=== PATIENT | male | born 1940 | race Caucasian/White ===

== ENCOUNTER 2021-01-25 05:55 | Inpatient (IN) | payer MEDICARE ==
[~2021-01-25] VITALS: Ht 170.2 cm; Wt 67.0 kg
[~2021-01-25 05:55] MED LIST: AMLO5 PO; ASPI325 PO; ASPI81CH PO; AZIT250 PO; CENTRUM SILVER1 EAC4 PO; CHOL10002 PO; FAMO20 PO; FERR325 PO; GABA300 PO; GAVILAX17 GM PO; HYDCHL25 PO; LORA10 PO; LOSA50 PO; LOVA40 PO; METO25ER PO; MIRT15 PO; Oxycodone HCl20 M1 PO; PREG50 PO; SERT100 PO; Stool Softener100 MG PO
[2021-01-25 06:17] LABS: BASOPHILS ABSOLUTE AUTO 0.04 K/mm3 (0.00-0.23); BASOPHILS PERCENT AUTO 0 % (0-2); EOSINOPHILS ABSOLUTE AUTO 0.11 K/mm3 (0.00-0.68); EOSINOPHILS PERCENT AUTO 1 % (0-6); Hemoglobin 8.5 g/dL (13.5-17.5); IMMATURE GRAN ABSOLUTE AUTO 0.03 K/mm3 (0.00-0.10); IMMATURE GRAN PERCENT AUTO 0 % (0-1); LYMPHOCYTES ABSOLUTE AUTO 1.52 K/mm3 (0.84-5.20); LYMPHOCYTES PERCENT AUTO 15 % (21-46); MONOCYTES ABSOLUTE AUTO 1.16 K/mm3 (0.16-1.47); MONOCYTES PERCENT AUTO 11 % (4-13); Mean Corpuscular HGB 25.6 pg (26.0-34.0); Mean Corpuscular HGB Conc 29.3 g/dL (31.5-36.5); Mean Corpuscular Volume 87 fL (80-100); Mean Platelet Volume 10.2 fL (9.1-12.4); NEUTROPHILS PERCENT AUTO 72 % (41-73); Platelet Count 240 K/mm3 (150-400); RDW Coefficient Variation 16.6 % (11.7-14.2); RDW Standard Deviation 52.9 fL (35.1-46.3); Red Blood Cell Count 3.32 M/mm3 (4.30-5.90); White Blood Cell Count 10.16 K/mm3 (4.00-11.30)
[2021-01-25 06:47] LABS: Albumin, Blood 2.8 g/dL (3.4-5.0); Albumin/Globulin Ratio 0.8 (0.8-1.8); Bilirubin, Total 0.4 mg/dL (0.1-1.0); Bun/Creatinine Ratio 31.7 (12.0-20.0); Creatinine, Blood 1.8 mg/dL (0.60-1.20); Globulin, Blood 3.7 g/dL (2.2-4.0); Potassium, Blood 3.8 mmol/L (3.5-5.5); Total Protein, Blood 6.5 g/dL (6.4-8.2)
[2021-01-25 06:51] LABS: Troponin I 0.577 ng/mL (0.000-0.040)
[2021-01-25 07:30] LABS: Source, Urine Catheter
[2021-01-25 07:34] LABS: Appearance, Urine Clear (Clear); Bilirubin, Urine Neg (Neg); Blood, Urine Neg (Neg); Color, Urine Yellow (P-Yellow); Glucose Qualitative, Urine Neg (Neg); Ketones, Urine Neg (Neg); Leukocyte Esterase, Urine Neg (Neg); Nitrite, Urine Neg (Neg); Protein, Urine 2+ (Neg); Urobilinogen, Urine NORM (Normal)
[2021-01-25 07:35] LABS: SARS-Cov-2 (COVID-19) PCR, MMC NEGATIVE (NEGATIVE)
[2021-01-25 07:42] LABS: Red Blood Cells, Urine 0-2 /hpf (0-2); Squamous Epithelial Cells Few /hpf (Few)
[2021-01-25 07:43] LABS: Bacteria Rare /hpf
[2021-01-25 08:43] LABS: Base Excess Venous 8.7 mmol/L; Bicarbonate Venous 30.8 mmol/L (24.0-30.0); PO2 Venous 46.8 mmHg (38-42); pH Blood Venous 7.35 (7.34-7.37)
[2021-01-25 08:59] LABS: Percent Saturation 2.9 % (20.0-50.0)
[2021-01-25] MEDS ORDERED: CLOP75 PO (09:26)
[2021-01-25] MEDS ORDERED: FURO40 PO (09:26)
[2021-01-25] MEDS ORDERED: XARELTO20 MG PO (09:27)
[2021-01-25] MEDS ORDERED: LOVASTATIN20 MG PO (11:46)
[2021-01-25] MEDS ORDERED: GABAPENTIN600 MG PO (11:47)
[2021-01-25] MEDS ORDERED: METOPROLOL SUCC25 MG PO (11:47)
[2021-01-25] MEDS ORDERED: FUROSEMIDE20 MG PO (11:47)
[2021-01-25] MEDS ORDERED: FAMO20 PO (11:48)
[2021-01-25] MEDS ORDERED: REMERON PO (11:48)
--- NOTE | 2021-01-25 14:10 | NUR ---
PT ARRIVED TO UNIT FROM ER PT TRANSFERED FROM [facility] TO BED WITH SLIDE SHEET. TOLERATED WELL. PT REPORTS LOWER BACK PAIN THAT IS CHRONIC FOR HIM. DENIES CHEST PAIN OR SOB. HE IS ORIENTED BUT INT CONFUSION, REDIRECTS WELL. STATES HE "DOES NOT FEEL WELL" CURRENTLY ON 2L NASAL CANULA. CALL LIGHT IS IN REACH, EDUCATED ON USE. BED ALARM ON FOR SAFETY. PT CONFIRMED DNR STATUS AND BAND PLACED ON R WRIST. MEPILEX APPLIED TO BELOW GLUTEAL FOLD ON LEFT SIDE FOR REDDENED AREA WITH SMALL SKIN SLOUGH. END OF STUMP ON LEFT LEG BRIGHT RED BUT BLANCHABLE. MEPILEX APPLED AND PILLOW PLACED UNDERNEATH.
--- NOTE | 2021-01-25 17:32 | NUR ---
TELE CALLED TO REPORT A 7 SECOND, 16 BEAT RUN OF VTACH. PT CONTINUES TO SLEEP AND WILL AWAKEN WHEN TALKED TO HE STATES "GOOD MORNING" EACH TIME HE IS AWOKEN AND TAKES TIME TO REORIENT. FALLS ASLEEP QUICKLY AFTER. BLOOD PRESSURES IN THE 70'S SYSTOLIC. HARNESSMAKER APPRENTICE AWARE. NOTIFIED PROVIDER DYLAN. CONTINUING TO MONITOR VITALS. PT CONTINUES TO SLEEP.
--- NOTE | 2021-01-25 17:59 | NUR ---
DR. YUSUF IN TO SEE PATIENT ORDERS RECIEVED TO START A PICC LINE OR POWERGLIDE TO START LEVOPHED. NOTIFED FURNACE CHECKER AND POWERGLIDE BEING STARTED AT THIS TIME. PT REMAINS ASLEEP DURING MOST TIMES, WILL AWAKEN BUT FALLS ASLEEP QUICKLY. HAS BEEN ASLEEP FOR MOST OF SHIFT. HOLDING PO MEDS AT THIS TIME PATIENT IS TO ASLEEP TO SAFELY SWALLOW.
--- NOTE | 2021-01-25 18:37 | NUR ---
levophed initiated at this time. pt remains asleep at this time.
[2021-01-25 20:29] LABS: Bun/Creatinine Ratio 29.9 (12.0-20.0)
[2021-01-25 20:30] LABS: Calcium, Blood 10.2 mg/dL (8.5-10.1); Potassium, Blood 3.9 mmol/L (3.5-5.5)
[2021-01-25 20:31] LABS: Creatinine, Blood 1.74 mg/dL (0.60-1.20)
--- NOTE | 2021-01-25 23:43 | NUR ---
VTACH 13 BEATS [facility] CALLED ME REGARDING THIS EVENT. LABS EARLIER THIS EVENING ALL WNL. PATIENT REMAINS ALERT IN CHRONIC AFIB WHICH IS RATE CONTROLLED. BP STABLE WITH 4MCG OF LEVO. OVERALL STATUS REMAINS UNCHANGED. WILL CONTINUE TO MONITOR.
[2021-01-26 04:14] LABS: BASOPHILS ABSOLUTE AUTO 0.04 K/mm3 (0.00-0.23); BASOPHILS PERCENT AUTO 0 % (0-2); EOSINOPHILS ABSOLUTE AUTO 0.08 K/mm3 (0.00-0.68); EOSINOPHILS PERCENT AUTO 1 % (0-6); Hematocrit 28.9 % (37.0-53.0); Hemoglobin 8.3 g/dL (13.5-17.5); IMMATURE GRAN ABSOLUTE AUTO 0.03 K/mm3 (0.00-0.10); IMMATURE GRAN PERCENT AUTO 0 % (0-1); LYMPHOCYTES ABSOLUTE AUTO 1.53 K/mm3 (0.84-5.20); LYMPHOCYTES PERCENT AUTO 17 % (21-46); MONOCYTES ABSOLUTE AUTO 0.96 K/mm3 (0.16-1.47); MONOCYTES PERCENT AUTO 11 % (4-13); Mean Corpuscular HGB 25.2 pg (26.0-34.0); Mean Corpuscular HGB Conc 28.7 g/dL (31.5-36.5); Mean Corpuscular Volume 88 fL (80-100); Mean Platelet Volume 10.3 fL (9.1-12.4); NEUTROPHILS ABSOLUTE AUTO 6.47 K/mm3 (1.96-9.15); NEUTROPHILS PERCENT AUTO 71 % (41-73); NRBC ABSOLUTE 0.02 K/mm3 (0.00-0.02); NRBC Auto 0.2 /100 WBC (0.0-0.2); Platelet Count 228 K/mm3 (150-400); RDW Coefficient Variation 16.6 % (11.7-14.2); RDW Standard Deviation 53.8 fL (35.1-46.3); Red Blood Cell Count 3.29 M/mm3 (4.30-5.90); White Blood Cell Count 9.11 K/mm3 (4.00-11.30)
[2021-01-26 04:32] LABS: Albumin, Blood 2.5 g/dL (3.4-5.0); Albumin/Globulin Ratio 0.8 (0.8-1.8); Bilirubin, Total 0.4 mg/dL (0.1-1.0); Calcium, Blood 9.9 mg/dL (8.5-10.1); Creatinine, Blood 1.62 mg/dL (0.60-1.20); Globulin, Blood 3.3 g/dL (2.2-4.0); Magnesium, Blood 2.2 mg/dL (1.6-2.4); Potassium, Blood 3.8 mmol/L (3.5-5.5); Total Protein, Blood 5.8 g/dL (6.4-8.2)
--- NOTE | 2021-01-26 05:30 | NUR ---
END OF SHIFT SUMMARY: PATIENT HAS BEEN A/O X4 BUT FORGETFUL AT TIMES AND STATES HE IS FEELING MUCH BETTER. HE IS STILL IN CHRONIC AFIB BUT CONTROLLED IN THE 70-80S. BP HAS BEEN LABILE REQUIRING LEVOPHED AT START OF SHIFT BUT HAS BEEN ON STANDBY SINCE 399. PATIENT HAD ONE 13 BEAT RUN OF VTACH TONIGHT. PATIENT STATUS UNCHANGED AND VIRTALS ALL WNL. 2L NC OVERNIGHT FOR COMFORT BUT DOES NOT WEAR AT HOME. DENIES PAIN OR FEELING SOB. LABS WNL. ADEQUATE URINE OUTPUT FROM DOHERTY. ALLOWED PATIENT TO CALL SON LAST NIGHT BECAUSE HE IS LOCAL AND HE WANTED TO SPEAK TO SOMEONE FAMILIAR. TO BE SEEN BY CARDIOLOGY TODAY
--- NOTE | 2021-01-26 08:52 | NUR ---
DR OGNZALEZ IN ROOM FOR CONSULT. ROCEPHIN 1 GM IV INFUSING WELL.
--- NOTE | 2021-01-26 18:27 | NUR ---
SHIFT SUMMARY PT ALERT AND ORIENTED TO SELF. CONFUSED TO SITUATION. NEEDS FREQUENT REDIRECTION AND REORIENTATION. PT OFTEN FORGETS LIMITATIONS. PT AGITATED AND ANGRY ABOUT BEING HERE. DOES NOT FEEL HE IS SICK. CONSTANTLY DEMANDS TO GO HOME. STATES "THIS IS [facility]ST [facility], YOU GUYS ARE TERRIBLE, WHY ARE YOU KEEPING ME HERE?". DISCHARGE PLANNING INVOLVED AND SPEAKING WITH FAMILY RE PLAN OF CARE. PT HAS SL POWERGLIDE TO DARIEL, SITE WNL, DRESSING C/D/I. PT HAS TO PERIPHERAL IVS TO LEFT ARM (ONE TO FA AND ONE TO AC), BOTH SITES WNL, DRESSINGS INTACT. DOHERTY DRAINING TO GRAVITY, DARK RAUL URINE. PT HAD LARGE BM TODAY. APPETITE MINIMAL. TAKING IN PO FLUIDS OK. BP LABILE. STARTED ON PO MIDODRINE TODAY. PT ON 2L O2 PER NC, SATS 92-96%. PT IN AFIB. FREQUENTLY TACHY. HAVING PVCS AND RUNS OF VTACH (NONSUSTAINED). PT DENIES SOB OR CP. PT GETS SOB AND TACHYCARDIC AND DIZZY WITH ACTIVITY. SKIN OVERALL INTACT, SOME SMALL SORES TO ARMS. PT USES CALL LIGHT. LUNG SOUNDS CLEAR. PULSES STRONG. WILL REPORT TO ONCOMING SHIFT.
--- NOTE | 2021-01-26 22:21 | NUR ---
CALL TO DR LOVELL THIS RN SPEAKS WITH DR LOVELL REGARDING PT MAP LOW AT SHIFT CHANGE AND NOW 70. ASKS IF MIDODRINE CAN BE INCREASED TO [address] LOVELL, D/T MAP OVER 65 MAINTAINING AT THIS TIME, INCREASE IS NOT NECESSARY.
--- NOTE | 2021-01-27 03:01 | NUR ---
UPDATE TO FAMILY THIS RN UPDATES REYNALDO BEAL.
[2021-01-27 04:14] LABS: Hematocrit 26.4 % (37.0-53.0); Hemoglobin 7.8 g/dL (13.5-17.5); Mean Corpuscular HGB 25.7 pg (26.0-34.0); Mean Corpuscular HGB Conc 29.5 g/dL (31.5-36.5); Mean Corpuscular Volume 87 fL (80-100); Mean Platelet Volume 10.3 fL (9.1-12.4); NRBC ABSOLUTE 0.02 K/mm3 (0.00-0.02); NRBC Auto 0.3 /100 WBC (0.0-0.2); Platelet Count 200 K/mm3 (150-400); RDW Coefficient Variation 16.8 % (11.7-14.2); RDW Standard Deviation 52.4 fL (35.1-46.3); Red Blood Cell Count 3.04 M/mm3 (4.30-5.90); White Blood Cell Count 7.52 K/mm3 (4.00-11.30)
[2021-01-27 04:38] LABS: Albumin, Blood 2.7 g/dL (3.4-5.0); Anion Gap 3 mmol/L (6-16); Blood Urea Nitrogen 42 mg/dL (8-24); Bun/Creatinine Ratio 26.9 (12.0-20.0); CO2, Blood 35 mmol/L (21-32); Calcium, Blood 9.8 mg/dL (8.5-10.1); Chloride, Blood 104 mmol/L (98-108); Creatinine, Blood 1.56 mg/dL (0.60-1.20); Glomerular Filtration Rate 43 (60-); Glucose, Blood 101 mg/dL (70-99); Phosphorus, Blood 3.3 mg/dL (2.5-4.9); Potassium, Blood 3.5 mmol/L (3.5-5.5); Sodium, Blood 142 mmol/L (136-145)
--- NOTE | 2021-01-27 07:18 | NUR ---
SHIFT SUMMARY PT AOX3, CALM AND COOPERATIVE W/STAFF. REPOSITIONED Q2 FOR COMFORT. AFIB 90'S-110'S FOR MOST OF SHIFT, HR UP TO 130'S WITH ACTIVITY AND AGITATION. PT DENIED PAIN T/O NIGHT, ANY DISCOMFORT WAS EASILY MANAGED WITH REPOSITIONING. MAP MAINTAINED MID 60'S-70'S T/O SHIFT. PT HAD FREQUENT SHORT EPISODES OF V TACH WITH 4-5 RUNS OF ABOUT 5-7 BEATS. SATS 96-98% ON 2 L VIA NC. PT FREQUENTLY CONFUSED REGARDING WHERE HE IS AND SITUATION. DOHERTY PATENT AND DRAINING YELLOW URINE. IV'S AND PG SALINE LOCKED.
--- NOTE | 2021-01-27 09:04 | NUR ---
Pt alert, oriented to person, year, and his age. Able to tell me that he is feeling better than yesterday because yesterday "they were killing me. I was haing pain from that tube in my penis." He did not realize that he stil had a Navarro catheter at this time, too. He is still c/o discomfort at the urethral insertion site. Assisted him to sit up to eat his breakfast . He was reoriented to where he is, and why he had to come to the hospital. Able to carry on conversation but his memory is very limited.
--- NOTE | 2021-01-27 11:54 | NUR ---
pt repositioned and set up for breakfast, late, around 10 pm. At this time he has been repositioned frequently at his request and presently was repositioned and sat up to eat lunch. He appears to have a good appetite. He was given Tylenol for back ache. Hypotension noted.
--- NOTE | 2021-01-27 12:40 | NUR ---
Spoke with pt's son Shaun by telephone to update him of pt's condition and plan per Dr. Leong for discharge home tomorrow. Shaun stated that his father will be coming home to [place] to live with him at discharge. STates that he also cares for his mother as well. Shaun states pt's baseline is wheelchair bound, and that he is working on getting a new prosthetic for the pt's left leg as the old one is ill-fitting. Pt is very frequently asking for repositioning, and is very forgetful of where he is and what is currently going on.
--- NOTE | 2021-01-27 15:38 | NUR ---
Spiritual care visit conducted. Patient is lying in bed and alert. Patient immediately tells me that he thinks he had a surgery and things went wrong but he feels as if he is at peace with God and man. He also speaks about his family as his inspiration and motivation. My visit was cut short by RT so I will hopefully be able to roll picker where we left off next visit.
[2021-01-28 04:19] LABS: BASOPHILS ABSOLUTE AUTO 0.03 K/mm3 (0.00-0.23); BASOPHILS PERCENT AUTO 0 % (0-2); EOSINOPHILS ABSOLUTE AUTO 0.13 K/mm3 (0.00-0.68); EOSINOPHILS PERCENT AUTO 2 % (0-6); Hematocrit 28.4 % (37.0-53.0); Hemoglobin 8.2 g/dL (13.5-17.5); IMMATURE GRAN ABSOLUTE AUTO 0.03 K/mm3 (0.00-0.10); IMMATURE GRAN PERCENT AUTO 0 % (0-1); LYMPHOCYTES ABSOLUTE AUTO 1.43 K/mm3 (0.84-5.20); LYMPHOCYTES PERCENT AUTO 17 % (21-46); MONOCYTES ABSOLUTE AUTO 1.07 K/mm3 (0.16-1.47); MONOCYTES PERCENT AUTO 13 % (4-13); Mean Corpuscular HGB 24.8 pg (26.0-34.0); Mean Corpuscular HGB Conc 28.9 g/dL (31.5-36.5); Mean Corpuscular Volume 86 fL (80-100); Mean Platelet Volume 10.4 fL (9.1-12.4); NEUTROPHILS ABSOLUTE AUTO 5.77 K/mm3 (1.96-9.15); NEUTROPHILS PERCENT AUTO 68 % (41-73); NRBC ABSOLUTE 0.04 K/mm3 (0.00-0.02); NRBC Auto 0.5 /100 WBC (0.0-0.2); Platelet Count 214 K/mm3 (150-400); RDW Coefficient Variation 16.8 % (11.7-14.2); RDW Standard Deviation 52.1 fL (35.1-46.3); White Blood Cell Count 8.46 K/mm3 (4.00-11.30)
[2021-01-28 04:47] LABS: Albumin, Blood 2.8 g/dL (3.4-5.0); Albumin/Globulin Ratio 0.9 (0.8-1.8); Bilirubin, Total 0.4 mg/dL (0.1-1.0); Bun/Creatinine Ratio 24.8 (12.0-20.0); C-REACTIVE PROTEIN, EXT RANGE 0.881 mg/dL (0.000-0.300); Calcium, Blood 10.2 mg/dL (8.5-10.1); Creatinine, Blood 1.53 mg/dL (0.60-1.20); Globulin, Blood 3.1 g/dL (2.2-4.0); Potassium, Blood 3.4 mmol/L (3.5-5.5); Thyroid Stimulating Hormone 1.55 uIU/mL (0.360-4.800); Total Protein, Blood 5.9 g/dL (6.4-8.2)
--- NOTE | 2021-01-28 05:59 | NUR ---
SHIFT SUMMARY PT A/OX2 EXTREMELY FORGETFUL. CALLS FREQUENTLY FOR THE SAME THING AND REPOSITIONING. AT TIMES YELLS FOR HELP. ON TELE AFIB W/ PVC'S IN THE LOW 110'S. IS ON RA AND FOR A FEW HOURS PLACED ON 1L NC BECAUSE 02 MAINTAINED IN THE 88'S DID COME BACK UP IN THE 90'S ON RA. PT. CAN BE INCONT. BUT T/O MOST OF THE NIGHT WAS CONT. WITH STAFF HELP TO USE THE URINAL. A X1-2 ASSIST IN BED. VSS AND AT TIMES WITH LOW BP'S MD AWARE AND ON MED. PER MD ORDERS. WILL CONT. TO MONITOR PT. CALL LIGHT W/IN REACH, BED IN LOWEST POSITION WITH Q2H TURNS. AT A TIME PT DID GET UPSET WHEN WOKEN UP TO BE REPOSITIONED AND REFUSED.
--- NOTE | 2021-01-28 07:28 | NUR ---
[facility] Received report from night nurse. Pt is sleeping in bed. His bp remains on the lower end as it has been. His o2 sats dipped down into the 80's so 2 lpm via NC has been placed and his sats are back up into the 90's. The plan is for him to dc home today. His bed alarm is on for safety and he has his call light in reach.
--- NOTE | 2021-01-28 12:16 | NUR ---
Update Pt has DC orders which have been discussed with his son Shaun who is his caregiver. Shaun reports that he can be here at 3:00 pm this afternnon to picker feeder the pt.
[2021-01-28] MEDS ORDERED: ACET325 PO (13:44)
[2021-01-28] MEDS ORDERED: ALBU2.5V5 INH (13:45)
[2021-01-28] MEDS ORDERED: AZIT500 PO (13:46)
[2021-01-28] MEDS ORDERED: MIDO5 PO (13:47)
[2021-01-28] MEDS ORDERED: FERSU300 PO (13:47)
[2021-01-28] MEDS ORDERED: ONDA4ODT MM (13:48)
[2021-01-28] MEDS ORDERED: PANT40 PO (13:49)
[2021-01-28] MEDS ORDERED: LACT PO (13:51)
[2021-01-28] MEDS ORDERED: CEFD300 PO (13:52)
--- NOTE | 2021-01-28 14:57 | NUR ---
Pt dcd home with son and home health. Dc instructions sent with the son. med rec faxed to the pharmacy. Ivs removed with no issues. all personal belongings sent with the pt. pt stable upon dc.
== END 2021-01-28 15:07 | disposition home or self-care (01) | DRG 280 ==
LOC: ER 05:55 → ERHOLD 08:47 → SURS 08:47
PROVIDERS: Emergency Medicine; Family Medicine; Hospitalist; Internal Medicine; Nurse Practitioner Acute Care; ADMIT Internal Medicine
PROC: 3E033XZ Introduction of Vasopressor into Peripheral Vein, Percutaneous Approach (ICD-10-PCS; principal; 2021-01-25)
DX: I13.0 Hypertensive heart and chronic kidney disease with heart failure and stage 1 through stage 4 chronic kidney disease, or unspecified chronic kidney disease (principal); J18.9 Pneumonia, unspecified organism; I21.A1 Myocardial infarction type 2; J96.21 Acute and chronic respiratory failure with hypoxia; I50.33 Acute on chronic diastolic (congestive) heart failure; N17.9 Acute kidney failure, unspecified; I42.0 Dilated cardiomyopathy; Z20.822 Contact with and (suspected) exposure to COVID-19; Z66 Do not resuscitate; I25.10 Atherosclerotic heart disease of native coronary artery without angina pectoris; I95.9 Hypotension, unspecified; N18.30 Chronic kidney disease, stage 3 unspecified; G62.9 Polyneuropathy, unspecified; I48.0 Paroxysmal atrial fibrillation; F17.210 Nicotine dependence, cigarettes, uncomplicated; J44.9 Chronic obstructive pulmonary disease, unspecified; F41.8 Other specified anxiety disorders; D63.1 Anemia in chronic kidney disease; E78.5 Hyperlipidemia, unspecified; Z95.1 Presence of aortocoronary bypass graft; Z79.82 Long term (current) use of aspirin; Z79.899 Other long term (current) drug therapy; Z85.46 Personal history of malignant neoplasm of prostate; Z86.711 Personal history of pulmonary embolism; Z90.49 Acquired absence of other specified parts of digestive tract; Z98.890 Other specified postprocedural states
CPT/HCPCS: 36415; 51702; 71045; 80048; 80053; 80069; 81001; 82728; 82803; 83540; 83550; 83605; 83735; 83880; 84100; 84145; 84443; 84484; 85025; 85027; 86140; 86850; 86900; 86901; 87040; 93005; 93010; 94640; 94760; 94761; 94762; 96365-59; 96368; 99285-25; A9270; C1751; C8929; J0456; J0696; J7030; J7050; J7060; J7120; P9046; Q9957; U0004